=== PATIENT | male | born 1965 | race African-American/Black ===

== ENCOUNTER 2021-04-12 20:34 | Observation (INO) ==
[2021-04-12] MEDS ORDERED: Aspirin 81 MG TAB.CHEW PO ONE (21:01)
[2021-04-12 21:14] LABS: Basophils % 0.6 %; Eosinophils # 0.4 K/mcL (0.0-0.6); Eosinophils % 5.9 %; Hematocrit 42.8 % (37.5-50.1); Hemoglobin 13.6 g/dL (12.9-16.9); Immature Granulocytes % 0.8 % (0-4); Lymphocytes # 0.7 K/mcL (0.6-4.6); Lymphocytes % 10.8 %; Mean Corpuscular HGB Conc 31.8 g/dL (31.6-35.5); Mean Corpuscular Hemoglobin 26.3 pg (28.0-33.3); Mean Corpuscular Volume 82.6 fL (83.0-100.0); Mean Platelet Volume 10.2 fL (9.4-12.4); Monocytes # 0.8 K/mcL (0.0-1.3); Monocytes % 12.3 %; Neutrophils # 4.6 K/mcL (1.6-8.9); Platelet Count 274 K/mcL (140-400); Red Blood Count 5.18 M/mcL (4.19-5.50); Segmented Neutrophils % 69.6 %; White Blood Count 6.6 K/mcL (4.3-11.1)
[2021-04-12 21:36] LABS: Alanine Aminotransferase 72 Units/L (7-52); Albumin 4.4 g/dL (3.5-5.7); Albumin/Globulin Ratio 1.8 (1.1-2.2); Alkaline Phosphatase 40 Units/L (34-104); Aspartate Amino Transferase 43 Units/L (13-39); BUN/Creatinine Ratio 12 (6-26); Bilirubin,Direct 0.2 mg/dL (0.0-0.2); Bilirubin,Indirect 0.7 mg/dL (0.0-1.0); Bilirubin,Total 0.9 mg/dL (0.3-1.0); Blood Urea Nitrogen 18 mg/dL (6-20); Calcium 9.9 mg/dL (8.6-10.3); Carbon Dioxide 24 mEq/L (23-29); Chloride 99 mEq/L (98-107); Globulin 2.5 g/dL (2.4-3.5); Glucose 119 mg/dL (70-105); Osmolality,Calculated 295 (280-300); Potassium 4.3 mEq/L (3.5-5.1); Sodium 141 mEq/L (136-145); Total Protein 6.9 g/dL (6.4-8.9); Troponin I < 0.03 ng/mL (< 0.04); eGFR For African Americans > 60 (> 60); eGFR For Non-African Americans 50 (> 60)
[2021-04-13] MEDS ORDERED: Perflutren Lipid Microsphere 1.3 ML in 0.9 % Sodium Chloride 8.7 ML IVP PRN (01:24)
[2021-04-13] MEDS ORDERED: *HR* Dextrose 50 % in Water (Vial) 50 ML VIAL IVP PRN (01:25)
[2021-04-13] MEDS ORDERED: Dextrose Gel 15 GM/37.5 ML TUBE PO PRN ×2 (01:25)
[2021-04-13] MEDS ORDERED: D5% in Water 1,000 ML IVC PRN (01:25)
[2021-04-13] MEDS ORDERED: Nitroglycerin 0.4 MG TAB.SUBL SL PRN (01:28)
[2021-04-13] MEDS ORDERED: Naloxone 0.4 MG/ML INJ IVP PRN (01:29)
[2021-04-13] MEDS ORDERED: Ondansetron 4 MG/2 ML VIAL IVP PRN (01:29)
[2021-04-13] MEDS ORDERED: Melatonin 3 MG TABLET PO ONE (01:46)
[2021-04-13] MEDS: traZODone 50 MG TABLET PO SCH ×2 (02:23→21:16)
[2021-04-13] MEDS: Morphine Sulfate 2 MG/ML SYRINGE IVP PRN ×2 (02:24→21:20)
[2021-04-13 05:50] LABS: Estimated Average Glucose 169 mg/dl; Hemoglobin A1C 7.5 %
[2021-04-13 05:53] LABS: Hematocrit 39.5 % (37.5-50.1); Hemoglobin 12.9 g/dL (12.9-16.9); Mean Corpuscular HGB Conc 32.7 g/dL (31.6-35.5); Mean Corpuscular Hemoglobin 26.6 pg (28.0-33.3); Mean Corpuscular Volume 81.4 fL (83.0-100.0); Mean Platelet Volume 9.9 fL (9.4-12.4); Platelet Count 235 K/mcL (140-400); Red Blood Count 4.85 M/mcL (4.19-5.50); Red Cell Distribution Width 13.1 % (11.5-14.5); White Blood Count 4.5 K/mcL (4.3-11.1)
[2021-04-13 06:12] LABS: Calcium 9.3 mg/dL (8.6-10.3); Chol/HDL Ratio 3.1 (0-4.9); Potassium 4.1 mEq/L (3.5-5.1)
[2021-04-13 06:13] LABS: Troponin I < 0.03 ng/mL (< 0.04)
[2021-04-13] MEDS: Insulin LISPRO 300 UNITS/3 ML VIAL SUBQ SCH ×4 (06:20→23:11)
[2021-04-13] MEDS: *HR* Heparin 5,000 UNIT/ML VIAL SQ SCH ×3 (06:20→21:19)
[2021-04-13] MEDS ORDERED: Regadenoson 0.4 MG/5 ML SYRINGE IVP ONE (06:20)
[2021-04-13 06:26] LABS: Thyroid Stimulating Hormone 3.035 mcIU/mL (0.340-5.600)
[2021-04-13] MEDS: Spironolactone 12.5 MG TABLET PO SCH (09:33)
[2021-04-13] MEDS: Cholecalciferol (D-3) 1,000 UNIT (25MCG) TABLET PO SCH (09:33)
[2021-04-13] MEDS: Aspirin Enteric Coated 81 MG Tablet PO SCH (09:33)
[2021-04-13] MEDS: BuPROPion XL (24 HR) 150 MG TABLET PO SCH (14:55)
[2021-04-13] MEDS: Metoprolol XL (24 HR) Succ 25 MG TAB.ER.24H PO SCH (17:50)
[2021-04-13] MEDS: Sacubitril/Valsartan 24/26 MG 1 TABLET PO SCH (21:15)
[2021-04-14] MEDS: Insulin LISPRO 300 UNITS/3 ML VIAL SUBQ SCH (05:41)
[2021-04-14] MEDS: *HR* Heparin 5,000 UNIT/ML VIAL SQ SCH (05:41)
[2021-04-14 06:14] LABS: Hematocrit 42.3 % (37.5-50.1); Hemoglobin 13.9 g/dL (12.9-16.9); Mean Corpuscular HGB Conc 32.9 g/dL (31.6-35.5); Mean Corpuscular Hemoglobin 26.8 pg (28.0-33.3); Mean Corpuscular Volume 81.7 fL (83.0-100.0); Mean Platelet Volume 10.1 fL (9.4-12.4); Platelet Count 243 K/mcL (140-400); Red Blood Count 5.18 M/mcL (4.19-5.50); White Blood Count 4.4 K/mcL (4.3-11.1)
[2021-04-14 06:45] LABS: BUN/Creatinine Ratio 13 (6-26); Blood Urea Nitrogen 17 mg/dL (6-20); Calcium 9.4 mg/dL (8.6-10.3); Carbon Dioxide 25 mEq/L (23-29); Chloride 104 mEq/L (98-107); Glucose 125 mg/dL (70-105); Osmolality,Calculated 287 (280-300); Sodium 137 mEq/L (136-145); eGFR For African Americans > 60 (> 60); eGFR For Non-African Americans 58 (> 60)
[2021-04-14 06:53] VITALS: BP 125/74
[2021-04-14] MEDS ORDERED: Isosorbide MONOnitrate (24 HR) 30 MG TAB.ER.24H PO SCH (09:00)
[2021-04-14] MEDS: Cholecalciferol (D-3) 1,000 UNIT (25MCG) TABLET PO SCH (09:44)
[2021-04-14] MEDS: Aspirin Enteric Coated 81 MG Tablet PO SCH (09:44)
[2021-04-14] MEDS: Metoprolol XL (24 HR) Succ 25 MG TAB.ER.24H PO SCH (09:45)
[2021-04-14] MEDS: BuPROPion XL (24 HR) 150 MG TABLET PO SCH (09:45)
[2021-04-14] MEDS: Morphine Sulfate 2 MG/ML SYRINGE IVP PRN (09:48)
[2021-04-14] MEDS: Sacubitril/Valsartan 24/26 MG 1 TABLET PO SCH (09:59)
[2021-04-14] MEDS: Spironolactone 12.5 MG TABLET PO SCH (09:59)
== END 2021-04-14 11:21 ==
LOC: CDU 20:34 → EMEROOARM 20:34 → CDU 23:06
PROVIDERS: ADMIT Student in an Organized Health Care Education/Training Program; ATTEND Student in an Organized Health Care Education/Training Program